=== PATIENT | female | born 1955 | race Caucasian/White ===

== ENCOUNTER 2017-08-19 07:58 | Observation (INO) ==
[2017-08-19] MEDS ORDERED: Ondansetron 4 MG/2 ML VIAL IVP ONE (08:25)
[2017-08-19] MEDS ORDERED: 0.9 % Sodium Chloride 1,000 ML IVC ONE (08:25)
[2017-08-19] MEDS ORDERED: Ketorolac 15 MG/ML VIAL IVP ONE (08:26)
--- NOTE | 2017-08-19 08:43 | Emergency Department Note ---
Disposition Clinical Impression: Spondylolisthesis at L5-S1 level, Thickening of wall of gallbladder Adrenal adenoma Qualifiers: Laterality: unspecified laterality Qualified Code(s): D35.00 - Benign neoplasm of unspecified adrenal gland Abdominal pain Qualifiers: Abdominal location: right upper quadrant Qualified Code(s): R10.11 - Right upper quadrant pain Disposition: Home, Self-Care Condition: Good Referrals: Zhao Menchaca DO [Primary Care Provider] - Forms: ED Satisfaction Letter, Work/School Release Time of Disposition: 11:59 Abdominal Pain HPI - General Chief Complaint: ED Abdominal Pain Stated Complaint: abd pain/epigastric "bulge"/PAINTING Time Seen by Provider: 08/19/17 08:02 Source: patient Mode of arrival: ambulatory Limitations: no limitations Nursing Notes Reviewed: Yes Vital Signs Reviewed: Yes - History of Present Illness HPI Narrative: 62-year-old female with history of hyperlipidemia in with complaint of several days of epigastric and right upper quadrant pain. Patient states she woke up and the pain just got worse. She is not sure if it is worse with meals patient states that the pain is 6 out of 10, crampy achy, she denies any pain in her chest, denies hemoptysis leg swelling. Patient is already much emesis, she denies diarrhea or constipation, denies melena or hematochezia. Pt Subjective Complaint: abdominal pain Onset (ago): hour(s) Location: diffuse, RUQ Pain Severity: moderate Pain Scale: 6 Quality: cramping, aching Migration to: no migration Improves with: nothing Associated symptoms: Reports: nausea, vomiting. Denies: diarrhea, hematemesis, hematochezia - Related Data Home Medications Medication Instructions Recorded Confirmed Cyanocobalamin (Vitamin B-12) 1,000 mcg PO DAILY 01/10/16 08/19/17 [Vitamin B12] Multivitamin [Multivitamins] 1 tab PO DAILY 01/10/16 08/19/17 Ubidecarenone [Co Q10] 60 mg PO DAILY 01/10/16 08/19/17 Nakul Cit/Mag/D3/Zn/Surgical Nurse Practitioner/[place]/Bor 1 tab PO DAILY 10/01/16 08/19/17 [Citracal-Vit D + Magnesium Tab] FLUoxetine HCl [PROzac] 10 mg PO DAILY 10/01/16 08/19/17 Fenofibrate Nanocrystallized 145 mg PO DAILY 10/01/16 08/19/17 [Tricor] [place]-3/Dha/Epa/Fish Oil [Fish Oil 1,000 mg PO DAILY 10/01/16 08/19/17 1,000 mg Softgel] Vitamin E (Dl,Tocopheryl Acet) 1,000 unit PO DAILY 10/01/16 08/19/17 [Vitamin E] Allergies Allergy/AdvReac Type Severity Reaction Status Date / Time No Known Allergies Allergy Verified 08/07/17 18:46 All systems ED: reviewed and negative except as stated. Review of Systems: As Per HPI Constitutional: Denies: fever, chills Eyes: Denies: eye pain ENT ED: Denies: ear pain Cardiovascular: Denies: chest pain, palpitations Respiratory: Denies: cough, dyspnea Gastrointestinal: Reports: as per HPI, abdominal pain, nausea, vomiting. Denies : hematemesis, melena, hematochezia Genitourinary: Denies: urgency Musculoskeletal: Denies: back pain Integumentary: Denies: rash Abdominal Pain PMH - Past Medical History Medical history: Reports: non-contributory, other Female Surgical History: Reports: Tonsillectomy Psychiatric history: Reports: anxiety - Social History Smoking status: Current every day smoker Alcohol use: Reports: rarely Drug use: Reports: none Physical Exam Constitutional: alert and oriented, in NAD, vital signs reviewed and wnl HEENT: NCAT, sclera anicteric Neck: normal inspection, neck is supple, trachea midline Resp: normal chest inspection, CTA bilaterally, no resp distress CV: RRR, no m/g/r GI: normal inspection, Soft moderate tenderness to palpation right upper quadrant, positive Villa's sign, tenderness in epigastrium with no peritoneal signs. Back: normal inspection, negative CVA bilaterally, no tenderness to palpation Neuro: A&O3, no gross motor or sensory deficits bilaterally MSK: normal inspection, bilateral UE and LE with normal ROM Skin: No rashes, skin warm, dry, intact - General Limitations: no limitations General appearance: alert, in no apparent distress Course Course Narrative: 62-year-old female para quadrant and epigastric pain, pancreatitis or basic labs CBC, BMP, troponin EKG, basic lab work including hepatic panel lipase also gallbladder likely CT scan of abdomen., - Reevaluation(s) Reevaluation #1: Ultrasound shows evidence of diffuse gall bladder wall thickening pericholecystic fluid no definitive cholelithiasis, given abdominal pain on exam and guarding, and positive Villa sign, the patient will be admitted to surgical service after spoke with Dr. Reardon the general surgeon, he agreed to admit the patient, she will be kept nothing by mouth for gallbladder removal this afternoon. Findings consistent with osmole early acute cholecystitis, I spoke with the general surgeon he states no indication for antibiotics at this time, he will handle all floor orders. Patient will be kept nothing by mouth and admitted to the general surgeon Time: 12:03 Vital Signs Temperature 98.0 F 08/19/17 07:59 Pulse Rate 90 08/19/17 07:59 Respiratory Rate 18 08/19/17 07:59 Blood Pressure 132/80 08/19/17 07:59 O2 Sat by Pulse Oximetry 100 08/19/17 07:59 Temperature 98.0 F 08/19/17 07:59 Pulse Rate 83 08/19/17 11:02 Respiratory Rate 18 08/19/17 11:02 Blood Pressure 139/79 08/19/17 11:02 O2 Sat by Pulse Oximetry 97 08/19/17 11:02 Oxygen Delivery Oxygen Delivery Room Air Abdominal Pain - Differential Diagnosis Differential Diagnosis: Likely: acute appendicitis, diverticulitis, diverticulosis, gastroenteritis - Medical Records Medical records reviewed: Yes I reviewed the patient's medical records. - Lab Data Lab results reviewed: Yes I reviewed the patient's lab results. Result diagrams: 08/19/17 08:45 08/19/17 08:45 Lab Results 08/19/17 08/19/17 08/19/17 Range/Units 08:45 08:45 08:45 WBC 11.9 H (4.3-11.1) K/mcL RBC 3.90 (3.82-4.97) M/mcL Hgb 12.6 (11.5-15.4) g/dL Hct 37.9 (35.3-44.9) % MCV 97.2 (83.0-100.0) fL MCH 32.3 (28.0-33.3) pg MCHC 33.2 (31.6-35.5) g/dL RDW 12.5 (11.5-14.5) % Plt Count 279 (140-400) K/mcL MPV 8.9 L (9.4-12.4) fL Immature Gran % 0.3 (0-4) % Seg Neutrophils % 69.0 % Lymphocytes % 22.8 % Monocytes % 5.5 % Eosinophils % 2.1 % Basophils % 0.3 % Neutrophils # 8.2 (1.6-8.9) K/mcL Lymphocytes # 2.7 (0.6-4.6) K/mcL Monocytes # 0.7 (0.0-1.3) K/mcL Eosinophils # 0.3 (0.0-0.6) K/mcL Basophils # 0.0 (0.0-0.2) K/mcL Sodium 137 (136-145) mEq/L Potassium 3.7 (3.5-5.1) mEq/L Chloride 107 (98-107) mEq/L Carbon Dioxide 24 (23-29) mEq/L BUN 21 (8-23) mg/dL Creatinine 0.90 (0.60-1.20) mg/dL Est GFR ( Amer) > 60 (> 60) Est GFR (Non-Af Amer) > 60 (> 60) BUN/Creatinine Ratio 23 (6-26) Glucose 124 H (70-105) mg/dL Calculated Osmolality 288 (280-300) Calcium 9.6 (8.6-10.3) mg/dL Total Bilirubin 0.3 (0.3-1.0) mg/dL Direct Bilirubin 0.0 (0.0-0.2) mg/dL Indirect Bilirubin 0.3 (0.0-1.2) mg/dL AST 17 (13-39) Units/L ALT 16 (7-52) Units/L Alkaline Phosphatase 61 (34-104) Units/L Troponin I < 0.03 (< 0.04) ng/mL Serum Total Protein 6.9 (6.4-8.9) g/dL Albumin 4.1 (3.5-5.7) g/dL Globulin 2.8 (2.4-3.5) g/dL Albumin/Globulin Ratio 1.5 (1.1-2.2) Lipase 35 (11-82) Units/L Urine Color (Yellow) Urine Clarity (Clear) Urine pH (5.0-8.0) pH Units Ur Specific Anna (1.010-1.025) Urine Protein (Neg-Trace) mg/dL Urine Glucose (UA) (Normal) mg/dL Urine Ketones (Negative) mg/dL Urine Blood (Negative) Urine Nitrite (Negative) Urine Bilirubin (Negative) Urine Urobilinogen (Normal) mg/dL Ur Leukocyte Esterase (Negative) Ur Culture Indicated? (NO) 08/19/17 Range/Units 09:29 WBC (4.3-11.1) K/mcL RBC (3.82-4.97) M/mcL Hgb (11.5-15.4) g/dL Hct (35.3-44.9) % MCV (83.0-100.0) fL MCH (28.0-33.3) pg MCHC (31.6-35.5) g/dL RDW (11.5-14.5) % Plt Count (140-400) K/mcL MPV (9.4-12.4) fL Immature Gran % (0-4) % Seg Neutrophils % % Lymphocytes % % Monocytes % % Eosinophils % % Basophils % % Neutrophils # (1.6-8.9) K/mcL Lymphocytes # (0.6-4.6) K/mcL Monocytes # (0.0-1.3) K/mcL Eosinophils # (0.0-0.6) K/mcL Basophils # (0.0-0.2) K/mcL Sodium (136-145) mEq/L Potassium (3.5-5.1) mEq/L Chloride (98-107) mEq/L Carbon Dioxide (23-29) mEq/L BUN (8-23) mg/dL Creatinine (0.60-1.20) mg/dL Est GFR ( Amer) (> 60) Est GFR (Non-Af Amer) (> 60) BUN/Creatinine Ratio (6-26) Glucose (70-105) mg/dL Calculated Osmolality (280-300) Calcium (8.6-10.3) mg/dL Total Bilirubin (0.3-1.0) mg/dL Direct Bilirubin (0.0-0.2) mg/dL Indirect Bilirubin (0.0-1.2) mg/dL AST (13-39) Units/L ALT (7-52) Units/L Alkaline Phosphatase (34-104) Units/L Troponin I (< 0.04) ng/mL Serum Total Protein (6.4-8.9) g/dL Albumin (3.5-5.7) g/dL Globulin (2.4-3.5) g/dL Albumin/Globulin Ratio (1.1-2.2) Lipase (11-82) Units/L Urine Color Yellow (Yellow) Urine Clarity Clear (Clear) Urine pH 6.5 (5.0-8.0) pH Units Ur Specific Anna 1.024 (1.010-1.025) Urine Protein Negative (Neg-Trace) mg/dL Urine Glucose (UA) Normal (Normal) mg/dL Urine Ketones Negative (Negative) mg/dL Urine Blood Negative (Negative) Urine Nitrite Negative (Negative) Urine Bilirubin Negative (Negative) Urine Urobilinogen Normal (Normal) mg/dL Ur Leukocyte Esterase Negative (Negative) Ur Culture Indicated? NO (NO) - Radiology Data Radiology results reviewed: Yes I reviewed the patient's radiology results. Gallbladder Ultrasound 08/19/17 08:25 IMPRESSION: Biliary sludge in the gallbladder with diffuse gallbladder wall thickening. Minimal pericholecystic fluid collection. No definite cholelithiasis. Possible solid mass superior and medial to the right kidney. Recommend CT abdomen and pelvis with IV contrast for further assessment. D/ / Haleigh Last MD / Haleigh Last MD Interpreting Provider: Haleigh Last MD Abdomen/Pelvis CT 08/19/17 08:29 IMPRESSION: 1. Mild pericholecystic fluid versus gallbladder wall thickening. No visible stone by CT. Please refer to report for ultrasound obtained concurrently. 2. Stable right adrenal adenoma. 3. Small hiatal hernia. 4. Severe L5-S1 degenerative disc disease with grade 1 anterolisthesis of L5 on S1 due to bilateral L5 pars defects. This can be a cause of chronic low back pain. D/ / 08/19/2017 10:50:13 Rodney Rodriguez MD / Veronica Rushing Interpreting Provider: Rodney Rodriguez MD Chest X-Ray 08/19/17 08:29 IMPRESSION: No evidence for acute cardiopulmonary process. Previously identified pulmonary nodules/ground-glass opacities to the chest on prior CT and PET-CT exams in 2017 are not demonstrated on this portable chest x-ray. Reference can be made to the prior exams for additional information and management recommendations. D/ / 08/19/2017 08:45:53 Vitaliy Tai MD / christofer Interpreting Provider: Vitaliy Tai MD - EKG Data EKG attestation: Yes I reviewed and interpreted this EKG. EKG shows normal: sinus rhythm Rate: normal Rhythm: NSR (86 bpm WA 157 QRS 86 QTc 413 no acute ischemic changes left axis, no ST segment elevations) Q waves: III Interpretation: no acute changes, normal EKG - Core Measures AMI Core Measures Followed: No Attestation Statement - Attestation Attestation: I, Conner Steele DO, examined this patient [id number] and my medical decision-making was reviewed with Dr. Lane Nuno, Resident Physician. I agree with the documented findings, disposition and treatment plan as described except to the extent set forth below. Please see my progress notes for details. 62-year-old female presents to the emergency room with complaint of epigastric bloating and discomfort. Patient denies any chest pain shortness of breath headache vision changes nausea vomiting or diarrhea. Denies any fevers or chills. Her main complaint is epigastric bloating. She started over the last week. Patient denies any trauma or injury. She never had any like this. Patient physical examination resting comfortably in the bed she sitting upright. Lungs are clear heart is regular. She has no reproducible symptoms with palpation to the chest wall. No rash or lesions noted on the anterior abdominal area. There does not appear to be old deformity to the abdominal wall. There is no visible signs of hernia. Patient is mild tenderness to almost point tenderness in the right upper quadrant and midepigastrium. Patient denies any significant alcohol or tobacco abuse history. Abdomen is soft with no tenderness noted S-the above-mentioned issues in the epigastrium and right upper quadrant. Ultrasound was negative for acute visualized cholecystitis. Labs are still pending at this point. CT imaging was ordered to address intra-abdominal pathology. Patient was given fluids and nausea medication. Most likely disposition to determine what sort of in imaging modalities are repeated. Concern is noted her gallbladder, pancreatic, intestinal-related symptoms. Patient does not have any specific history concerning for cardiac disease or issue. EKG did not show any acute signs of pathology. See detailed documentation of physical exam, medical intervention, medical decision-making and disposition physician's note. No critical care provider this patient's treatment course 1100 Patient found to have what appears to be gallbladder wall thickening based on ultrasound of the right upper quadrant. Consultation placed at the surgeon for their recommendations. Labs reviewed in detail as well as imaging modality patient will be admitted to the surgeon for further observation and management. No other recommendations are at this time. No antibiotics started.
[2017-08-19 08:58] LABS: Basophils % 0.3 %; Eosinophils # 0.3 K/mcL (0.0-0.6); Eosinophils % 2.1 %; Hematocrit 37.9 % (35.3-44.9); Hemoglobin 12.6 g/dL (11.5-15.4); Immature Granulocytes % 0.3 % (0-4); Lymphocytes # 2.7 K/mcL (0.6-4.6); Lymphocytes % 22.8 %; Mean Corpuscular HGB Conc 33.2 g/dL (31.6-35.5); Mean Corpuscular Hemoglobin 32.3 pg (28.0-33.3); Mean Corpuscular Volume 97.2 fL (83.0-100.0); Mean Platelet Volume 8.9 fL (9.4-12.4); Monocytes # 0.7 K/mcL (0.0-1.3); Monocytes % 5.5 %; Neutrophils # 8.2 K/mcL (1.6-8.9); Platelet Count 279 K/mcL (140-400); Red Cell Distribution Width 12.5 % (11.5-14.5)
[2017-08-19 09:15] LABS: Alanine Aminotransferase 16 Units/L (7-52); Albumin 4.1 g/dL (3.5-5.7); Albumin/Globulin Ratio 1.5 (1.1-2.2); Alkaline Phosphatase 61 Units/L (34-104); Aspartate Amino Transferase 17 Units/L (13-39); BUN/Creatinine Ratio 23 (6-26); Bilirubin,Indirect 0.3 mg/dL (0.0-1.2); Bilirubin,Total 0.3 mg/dL (0.3-1.0); Blood Urea Nitrogen 21 mg/dL (8-23); Calcium 9.6 mg/dL (8.6-10.3); Carbon Dioxide 24 mEq/L (23-29); Chloride 107 mEq/L (98-107); Globulin 2.8 g/dL (2.4-3.5); Glucose 124 mg/dL (70-105); Lipase 35 Units/L (11-82); Osmolality,Calculated 288 (280-300); Potassium 3.7 mEq/L (3.5-5.1); Sodium 137 mEq/L (136-145); Total Protein 6.9 g/dL (6.4-8.9); eGFR For African Americans > 60 (> 60); eGFR For Non-African Americans > 60 (> 60)
[2017-08-19 09:43] LABS: Bilirubin,Urine Negative (Negative); Blood,Urine Negative (Negative); Clarity,Urine Clear (Clear); Color,Urine Yellow (Yellow); Glucose,Urine (UA) Normal (Normal); Ketones,Urine Negative (Negative); Leukocyte Esterase,Urine Negative (Negative); Nitrite,Urine Negative (Negative); PH,Urine 6.5 pH Units (5.0-8.0); Protein,Urine Negative (Neg-Trace); Specific Gravity,Urine 1.024 (1.010-1.025); Urobilinogen,Urine Normal (Normal)
--- NOTE | 2017-08-19 12:05 | General Surg History&Physical ---
Date of Encounter: 08/19/17 Time of Encounter: 11:40 Assessment and Plan (1) Cholecystitis Current Visit: Yes Status: Acute The assessment and plan as outlined above was discussed with the patient and/or family members who expressed understanding and agreement. All questions were answered. The patient appears to have acute cholecystitis. She will be admitted to the hospital for IV hydration and antibiotic therapy. We will proceed with laparoscopic cholecystectomy and intraoperative cholangiogram later today. History of Present Illness Chief complaint: Right upper quadrant abdominal pain HPI: Ms. Cortes is a 62 year old female who has had pain for several days. Last evening the pain became continuous and right upper quadrant. She experienced nausea but no vomiting. The pain is continuous in nature. She denies shakes chills or fever. She denies episodes of jaundice. She has previously had episodes of right upper quadrant discomfort but is had no further workup for this. She sought evaluation in the emergency department. She has a thickened gallbladder wall and gallbladder sludge as well as pericholecystic fluid. Findings are consistent with acute cholecystitis. She has not previously had any upper abdominal surgery. She now presents for evaluation and management of acute cholecystitis. Past Med Surg Social Fam HX - Past Medical History Medical history: non-contributory, other Psychiatric history: anxiety - Past Surgical History Surgical History: breast surgery - Social History Smoking Status: Current every day smoker Smokeless Tobacco Status: No Alcohol use: rarely Drug use: none Medications and Allergies Cyanocobalamin (Vitamin B-12) [Vitamin B12] 1,000 mcg PO DAILY 01/10/16 [History ] Multivitamin [Multivitamins] 1 tab PO DAILY 01/10/16 [History] Ubidecarenone [Co Q10] 60 mg PO DAILY 01/10/16 [History] Nakul Cit/Mag/D3/Zn/Cotton Washer/[place]/Bor [Citracal-Vit D + Magnesium Tab] 1 tab PO DAILY 10/01/16 [History] FLUoxetine HCl [PROzac] 10 mg PO DAILY 10/01/16 [History] Fenofibrate Nanocrystallized [Tricor] 145 mg PO DAILY 10/01/16 [History] [place]-3/Dha/Epa/Fish Oil [Fish Oil 1,000 mg Softgel] 1,000 mg PO DAILY 10/01/16 [History] Vitamin E (Dl,Tocopheryl Acet) [Vitamin E] 1,000 unit PO DAILY 10/01/16 [History ] 3 Allergy/AdvReac Type Severity Reaction Status Date / Time No Known Allergies Allergy Verified 08/07/17 18:46 Review of Systems All systems PM: A 10-system review of systems was performed and is negative for pertinent findings except as documented above in the HPI. General Surgery Exam Initial Vital Signs Temp Pulse Resp BP Pulse Ox 98.0 F 90 18 132/80 100 08/19/17 07:59 08/19/17 07:59 08/19/17 07:59 08/19/17 07:59 08/19/17 07:59 - General physical appearance well developed, well nourished, no distress - ENT normal pinna, normal nares, normal mucosa, no hearing loss, no congestion - Neck no masses, no bruits, trachea midline, no lymphadectomy, no venous distension - Respiratory normal expansion, normal respiratory effort wheezing: bilateral - Cardiovascular Cardiovascular exam: Present: RRR, 15, 16 - Abdomen Abdomen general surgery: Present: tender, guarding Abdominal Tenderness: Present: RUQ Hernia: Present: none - Neurologic Present: CN 2-12 grossly intact, normal coordination, normal sensation - Psychiatric Psychiatric general surgery: Present: appropriate, oriented to person, oriented to place, oriented to time, speech is normal, memory intact Results - Labs 08/19/17 08:45 08/19/17 08:45 Abnormal lab results WBC 11.9 K/mcL (4.3-11.1) H 08/19/17 08:45 MPV 8.9 fL (9.4-12.4) L 08/19/17 08:45 Glucose 124 mg/dL (70-105) H 08/19/17 08:45 Diabetes panel 08/19/17 Range/Units 08:45 Sodium 137 (136-145) mEq/L Potassium 3.7 (3.5-5.1) mEq/L Chloride 107 (98-107) mEq/L Carbon Dioxide 24 (23-29) mEq/L BUN 21 (8-23) mg/dL Creatinine 0.90 (0.60-1.20) mg/dL Glucose 124 H (70-105) mg/dL Calcium 9.6 (8.6-10.3) mg/dL AST 17 (13-39) Units/L ALT 16 (7-52) Units/L Alkaline Phosphatase 61 (34-104) Units/L Albumin 4.1 (3.5-5.7) g/dL Calcium panel 08/19/17 Range/Units 08:45 Calcium 9.6 (8.6-10.3) mg/dL Albumin 4.1 (3.5-5.7) g/dL Pituitary panel 08/19/17 Range/Units 08:45 Sodium 137 (136-145) mEq/L Potassium 3.7 (3.5-5.1) mEq/L Chloride 107 (98-107) mEq/L Carbon Dioxide 24 (23-29) mEq/L BUN 21 (8-23) mg/dL Creatinine 0.90 (0.60-1.20) mg/dL Glucose 124 H (70-105) mg/dL Calcium 9.6 (8.6-10.3) mg/dL Adrenal panel 08/19/17 Range/Units 08:45 Sodium 137 (136-145) mEq/L Potassium 3.7 (3.5-5.1) mEq/L Chloride 107 (98-107) mEq/L Carbon Dioxide 24 (23-29) mEq/L BUN 21 (8-23) mg/dL Creatinine 0.90 (0.60-1.20) mg/dL Glucose 124 H (70-105) mg/dL Calcium 9.6 (8.6-10.3) mg/dL Total Bilirubin 0.3 (0.3-1.0) mg/dL AST 17 (13-39) Units/L ALT 16 (7-52) Units/L Alkaline Phosphatase 61 (34-104) Units/L Albumin 4.1 (3.5-5.7) g/dL All other labs normal. - Imaging US - abdomen: image reviewed (I personally reviewed the images. Findings are consistent with acute cholecystitis with pericholecystic fluid and thickened gallbladder wall)
[2017-08-19] MEDS ORDERED: CefOXitin 1,000 MG VIAL ONE (13:53)
[2017-08-19] MEDS ORDERED: Isovue-300 50 ML VIAL IVP ONE (13:55)
[2017-08-19] MEDS ORDERED: Albuterol 2.5 MG/3 ML NEBULIZER ONE (14:07)
[2017-08-19] MEDS ORDERED: Albuterol 2.5 MG/3 ML NEBULIZER IH ONE (14:10)
--- NOTE | 2017-08-19 14:11 | Anesthesia Evaluation PreOp ---
Date of Encounter: 08/19/17 Time of Encounter: 13:59 - Past History Planned Operation: lap alexsander, Cardiac History: Denies any Significant Hx (METS >4 without comp.) Pulmonary History: Smoker, Other (bronchitis 6 wks ago, steriod given, no hospitalizations.) HISTORIOGRAPHER History: Denies Any Significant HX Other Medical History: Other (depression) Anesthesia History: No Prior Anesthetic Complications, Past Anesthesia Alcohol Use: rarely Drug use: none Medications and Allergies Cyanocobalamin (Vitamin B-12) [Vitamin B12] 1,000 mcg PO DAILY 01/10/16 [History ] Multivitamin [Multivitamins] 1 tab PO DAILY 01/10/16 [History] Ubidecarenone [Co Q10] 60 mg PO DAILY 01/10/16 [History] Nakul Cit/Mag/D3/Zn/Coke Oven Patcher/[place]/Bor [Citracal-Vit D + Magnesium Tab] 1 tab PO DAILY 10/01/16 [History] FLUoxetine HCl [PROzac] 10 mg PO DAILY 10/01/16 [History] Fenofibrate Nanocrystallized [Tricor] 145 mg PO DAILY 10/01/16 [History] [place]-3/Dha/Epa/Fish Oil [Fish Oil 1,000 mg Softgel] 1,000 mg PO DAILY 10/01/16 [History] Vitamin E (Dl,Tocopheryl Acet) [Vitamin E] 1,000 unit PO DAILY 10/01/16 [History ] 3 Allergy/AdvReac Type Severity Reaction Status Date / Time No Known Allergies Allergy Verified 08/07/17 18:46 Anesthesia Results - Labs 08/19/17 08:45 08/19/17 08:45 Anesthesia Exam - HEENT Pupil (Motor): Pupils equal Mallampati: II Teeth: Missing (lower posts) Oral Opening: Greater than 3 - HISTORIOGRAPHER LOC: Oriented HISTORIOGRAPHER Motor: Normal RUE, Normal LUE, Normal RLE, Normal LLE, Normal Face HISTORIOGRAPHER Sensory: Normal: RUE, LUE, RLE, LLE, Face - Cardiac Rhythm: Regular Murmur: None - Pulmonary Breath Sounds: bilateral Rhonchi (mild) Respiratory Effort: Symmetrical Anesthesia Assess/Plan ASA Score: 2 Modified Osmel Scale for Level of Consciousness: Cooperative, oriented, and tranquil Anesthetic Plan: General Monitoring Plan: Standard Monitors Recovery Plan: PACU
[2017-08-19] MEDS ORDERED: MORPHINE SUL Oral CONC 10 MG/0.5 ML ORAL.SYG ONE (14:16)
[2017-08-19] MEDS ORDERED: *HR* OxyCODONE/APAP 5/325 TABLET PO PRN (14:43)
[2017-08-19] MEDS ORDERED: Ondansetron 4 MG/2 ML VIAL IVP PRN ×2 (14:43→16:24)
[2017-08-19] MEDS ORDERED: *HR* Midazolam HCl 2 MG/2 ML VIAL ONE (14:46)
[2017-08-19] MEDS ORDERED: *HR* Propofol 200 MG/20 ML VIAL IVP ONE (14:46)
[2017-08-19] MEDS ORDERED: CefOXitin 2,000 MG VIAL ONE (14:46)
[2017-08-19] MEDS ORDERED: Neostigmine Methylsulfate 3 MG/3 ML SYRINGE ONE (14:46)
[2017-08-19] MEDS ORDERED: Dexamethasone 4 MG/ML VIAL ONE (14:46)
[2017-08-19] MEDS ORDERED: *HR* Succinylcholine 200 MG/10 ML VIAL IVP ONE (14:46)
[2017-08-19] MEDS ORDERED: *HR* FentaNYL (PF) 100 MCG/2 ML VIAL ONE (14:46)
[2017-08-19] MEDS ORDERED: Ketorolac 30 MG/ML VIAL ONE (14:46)
[2017-08-19] MEDS ORDERED: Lidocaine -MPF 2% 2 ML VIAL ONE (14:46)
[2017-08-19] MEDS ORDERED: *HR* Rocuronium Bromide 50 MG/5 ML VIAL ONE (14:46)
[2017-08-19] MEDS ORDERED: Ondansetron 4 MG/2 ML VIAL ONE (14:46)
--- NOTE | 2017-08-19 14:53 | Anesthesia Procedures ---
Date of Encounter: 08/19/17 Time of Encounter: 14:25 Procedures: Anesthesia - Nerve Block Procedure Date: 08/19/17 Time: 14:25 Allergies/Adv Reactions: nkda Surgical Procedure: lap alexsander Checklist: Correct Patient Identifier, Correct procedure, History checked Blood Thinner: No Monitor Applied: EKG, BP, Pulse Oximetry Supplemental Oxygen via Nasal Cannula (L/min): 5 (under GA) Indication: Post Op Analgesia Pre-op Neuro Deficits: No Block Type: Other (TAP, and subcostal TAP) Catheter placed: No Sterile Technique: Yes Ultrasound used: Yes Anatomy identified: Yes Visual spread of Local: Yes Neuro Stimulation: No Blood on Needle Aspiration: No Smooth Injection of Local: Yes Prep: Chlorhexadine Needle: 21 x 100 mm Stimuplex Local: Other (0.25% bup plain) Volume (cc): 65 Number of Attempts: 1 Complications: None/effective block Vitals: vss see anesthesia note.
--- NOTE | 2017-08-19 15:15 | Operative Note ---
Date of procedure: 08/19/17 Pre-op diagnosis: Acute cholecystitis Post-op diagnosis: same Procedure: Laparoscopic cholecystectomy, cholangiogram Anesthesia: CARLOS Surgeon: Nolan Conde Was there an assistant speech language pathologist present: No Estimated blood loss (cc): 40 Specimen: Gallbladder and contents Condition: stable Disposition: PACU Procedure in Detail: Laparoscopic cholecystectomy and intraoperative cholangiogram Operative procedure after informed consent and appropriate patient identification timeout the patient was taken to the major operating suite and placed supine position given adequate general endotracheal anesthesia the abdomen is prepped and draped in sterile fashion utilizing ChloraPrep standard draping techniques timeout was taken patient is identified. I made a vertical midline incision below the umbilicus dissected down to level of fascia there are 2 traction stitches placed in the abdominal cavity was entered visually. A Albarran trocar was placed in the abdomen and the abdomen was insufflated to 15 mmHg pressure CO2 the gallbladder was visualized. A placement 11 port in the subxiphoid area and 2 5 mm ports in the subcostal area. The gallbladder was completely obstructed. The gallbladder was decompressed with a decompression needle and suction. The gallbladder was also encased in acute inflammatory reactions. These were divided with electrocautery The gallbladder was grasped and elevated. A variety of blunt and sharp dissection techniques were used to isolate the cystic duct and cystic artery. The cystic artery was controlled with 2 surgical clips proximally and one distally and it was divided I placed a surgical clip on the neck the gallbladder and obtained an intraoperative cholangiogram using 10 mL of Isovue. Intraoperative cholangiogram was normal. The cholangiocatheter was removed and the cystic duct was controlled with 2 surgical clips proximally and was divided the gallbladder was removed from the gallbladder fossae using electrocautery. The gallbladder was removed through the #11 port site. I replaced the #11 port and irrigated with copious amounts of antibiotic containing solution. There is no evidence of bleeding or bile leak. All trochars were removed. Fascia was closed with 0 Vicryl skin with 2-0 and 4-0 Vicryl She tolerated the procedure well and was transferred to recovery in stable condition
[2017-08-19] MEDS: MORPHINE SUL Oral CONC 10 MG/0.5 ML ORAL.SYG SL PRN ×2 (15:40→15:50)
--- NOTE | 2017-08-19 15:54 | Anesthesia Evaluation Post Op ---
Date of Encounter: 08/19/17 Time of Encounter: 15:52 - Vital Signs Vital Signs: Vital Signs/O2 Sat, Most Current Temp Pulse Resp BP Pulse Ox 98.2 F 78 20 146/72 96 08/19/17 15:45 08/19/17 15:45 08/19/17 15:45 08/19/17 15:45 08/19/17 15:45 - Lungs Lungs: Clear Ascult./Percussion - Airway Airway: Non-obstructed - Cardiovascular Regular Rate - Mental Status Mental Status: Alert & Oriented, Answers Appropriately - Pain Pain Scale: 7 (pt complaining of back pain that is "getting better" after pain med given) Pain Scale used: Numeric (1 - 10) - Nausea Vomiting Nausea Vomiting: Not Present - Hydration Hydration: Ice chips, Has not voided - Discharge PostOp Status: Transfer Patient to floor
[2017-08-19] MEDS ORDERED: *HR* OxyCODONE/APAP 10/325 TABLET PO PRN (16:24)
[2017-08-19] MEDS ORDERED: cefOXitin 2,000 MG in Water for inj. (sterile) 10 ML IVP SCH (16:24)
[2017-08-19] MEDS ORDERED: OXYCODONE Oral CONC 10 MG/0.5 ML ORAL.SYG SL PRN (16:24)
[2017-08-19] MEDS ORDERED: *HR* HYDROcodone/Acet 5/325 mg TABLET PO PRN (16:24)
[2017-08-19] MEDS ORDERED: cefOXitin 2,000 MG in Water for inj. (sterile) 20 ML 10 ML IVP SCH (16:24)
[2017-08-19] MEDS ORDERED: 0.9 % Sodium Chloride 1,000 ML IVC SCH (16:24)
--- NOTE | 2017-08-19 18:09 | Electrocardiograph Report ---
[place] [id number] Test Date: 2017-08-19 Pat Name: Claudia Cortes Department: 104 Room: 3A44 Gender: F Account Support Analyst: [facility] : 1955 Requested By: Lane Nuno Order Number: [id number] Reading MD: Ryan Velazquez Measurements Intervals Lawrence Rate: 86 P: 9 SC: 157 QRS: 23 QRSD: 86 T: 39 QT: 369 QTc: 413 Interpretive Statements SINUS RHYTHM Electronically Signed On 08-19-2017 18:07:38 EST by Ryan Velazquez
[2017-08-19] MEDS: 0.9 % Sodium Chloride 1,000 ML IVC SCH (18:39)
[2017-08-19] MEDS ORDERED: Nicotine 21 MG PATCH.TD24 TD SCH (18:45)
[2017-08-19] MEDS: cefOXitin 2,000 MG in Water for inj. (sterile) 20 ML 10 ML IVP SCH (21:24)
[2017-08-20] MEDS: cefOXitin 2,000 MG in Water for inj. (sterile) 20 ML 10 ML IVP SCH (06:35)
[2017-08-20] MEDS: 0.9 % Sodium Chloride 1,000 ML IVC SCH (06:41)
--- NOTE | 2017-08-20 07:26 | General Surgery Progress Note ---
Date of Encounter: 08/20/17 Time of Encounter: 07:17 - Assessment and Plan (1) Cholecystitis Current Visit: Yes Status: Acute 62 y F presenting with RUQ abdominal pain 2/2 to acute cholecystitis Date of procedure: 08/19/17 Pre-op diagnosis: Acute cholecystitis Post-op diagnosis: same Procedure: Laparoscopic cholecystectomy, cholangiogram Anesthesia: CARLOS Surgeon: Nolan Conde CBC, BMP for this AM pending Supportive care and pain control PPI therapy twice daily IV Antibiotics Advance Diet, as tolerated IS every 1 hour while awake AM labs- CBC, BMP, Mg, Phos (2) Depression Current Visit: Yes Status: Chronic Resume pt's home med, given tolerance of oral diet Qualifiers: Depression Type: unspecified Qualified Code(s): F32.9 - Major depressive disorder, single episode, unspecified (3) DVT prophylaxis Current Visit: Yes Status: Acute Intermittent pneumatic compression devices Ambulate TID at minimum, with assistance Subjective Narrative: No acute events overnight. Objective Vital Signs - Last 8 Hours Temp Pulse Resp BP Pulse Ox 08/20/17 03:56 98.4 F 78 15 123/79 97 08/19/17 23:37 97.6 F 91 16 112/71 95 Intake and Output 08/19/17 08/19/17 08/20/17 15:59 23:59 07:59 Intake Total 490 / 490 1010 / 1010 Output Total 40 / 40 0 / 0 0 / 0 Balance -40 / 960 490 / 490 1010 / 1010 Intake: IV Fluids 1010 / 1010 0.9 % Sodium Chloride 1,000 ML 1000 / 1000 @ 75 mls/hr IVC .[id number] [facility] Rx #:[id number] Mefoxin 2,000 MG In Water for inj. (sterile) 10 ML @ 150 mls/ hr IVP Q8H RODY Rx#:[id number] Oral 480 / 480 0 / 0 Output: Urine 0 / 0 0 / 0 0 / 0 Estimated Blood Loss 40 / 40 Other: # Voids 1 Weight 70.33 kg Patient Weight 08/20/17 23:59 Weight 70.33 kg - Labs 08/19/17 08:45 08/19/17 08:45 - VTE Documentation of Mechanical Device: Intermittent pneumatic compression device Consult Discharge Plan - Plan Referrals: Zhao Menchaca, [Primary Care Provider] -
[2017-08-20 08:04] LABS: Basophils % 0.1 %; Eosinophils % 0.2 %; Hematocrit 35.9 % (35.3-44.9); Hemoglobin 11.7 g/dL (11.5-15.4); Immature Granulocytes % 0.3 % (0-4); Lymphocytes # 2.7 K/mcL (0.6-4.6); Mean Corpuscular HGB Conc 32.6 g/dL (31.6-35.5); Mean Corpuscular Hemoglobin 31.9 pg (28.0-33.3); Mean Corpuscular Volume 97.8 fL (83.0-100.0); Mean Platelet Volume 9.1 fL (9.4-12.4); Monocytes # 0.7 K/mcL (0.0-1.3); Monocytes % 6.4 %; Neutrophils # 7.6 K/mcL (1.6-8.9); Platelet Count 271 K/mcL (140-400); Red Blood Count 3.67 M/mcL (3.82-4.97); Red Cell Distribution Width 12.4 % (11.5-14.5)
[2017-08-20 08:15] LABS: BUN/Creatinine Ratio 14 (6-26); Blood Urea Nitrogen 12 mg/dL (8-23); Calcium 8.8 mg/dL (8.6-10.3); Carbon Dioxide 26 mEq/L (23-29); Chloride 110 mEq/L (98-107); Glucose 114 mg/dL (70-105); Osmolality,Calculated 291 (280-300); Potassium 3.9 mEq/L (3.5-5.1); Sodium 140 mEq/L (136-145); eGFR For African Americans > 60 (> 60); eGFR For Non-African Americans > 60 (> 60)
[2017-08-20 08:35] VITALS: BP 127/73
[2017-08-20] MEDS ORDERED: FLUoxetine HCl 10 MG CAPSULE PO SCH (09:00)
--- NOTE | 2017-08-20 10:38 | Discharge Summary ---
Date of Encounter: 08/20/17 Time of Encounter: 10:36 - Discharge Diagnosis (1) Cholecystitis Priority: Primary Status: Acute (2) Depression Priority: Secondary Status: Chronic Qualifiers: Depression Type: unspecified Qualified Code(s): F32.9 - Major depressive disorder, single episode, unspecified (3) DVT prophylaxis Priority: Secondary Status: Acute - Discharge Medications Home Medications: Cyanocobalamin (Vitamin B-12) [Vitamin B12] 1,000 mcg PO DAILY 01/10/16 [History ] Multivitamin [Multivitamins] 1 tab PO DAILY 01/10/16 [History] Ubidecarenone [Co Q10] 60 mg PO DAILY 01/10/16 [History] Nakul Cit/Mag/D3/Zn/[employer]/[place]/Bor [Citracal-Vit D + Magnesium Tab] 1 tab PO DAILY 10/01/16 [History] FLUoxetine HCl [PROzac] 10 mg PO DAILY 10/01/16 [History] Fenofibrate Nanocrystallized [Tricor] 145 mg PO DAILY 10/01/16 [History] [place]-3/Dha/Epa/Fish Oil [Fish Oil 1,000 mg Softgel] 1,000 mg PO DAILY 10/01/16 [History] Vitamin E (Dl,Tocopheryl Acet) [Vitamin E] 1,000 unit PO DAILY 10/01/16 [History ] Docusate [Colace] 100 mg PO BID #30 capsule 08/20/17 [Rx] Ibuprofen 800 mg PO Q8HR PRN #42 tablet 08/20/17 [Rx] OxyCODONE/APAP 5/325 [Percocet 5/325 MG] 1 each PO Q6HR PRN 7 Days #20 tablet [Rx] Allergies/Adverse Reactions: 3 Allergy/AdvReac Type Severity Reaction Status Date / Time No Known Allergies Allergy Verified 08/07/17 18:46 General Surgery Exam Physical exam performed by Nolan Conde MD and dictated as stated below: Initial Vital Signs Temp Pulse Resp BP Pulse Ox 98.0 F 90 18 132/80 100 08/19/17 07:59 08/19/17 07:59 08/19/17 07:59 08/19/17 07:59 08/19/17 07:59 - General physical appearance no distress - Eyes normal ocular movement - Respiratory normal expansion, clear to auscultation - Abdomen Abdomen general surgery: Present: bowel sounds present. Absent: distended - Incision Incision: Present: intact Date of admission: 08/19/17 13:28 Primary care physician: Zhao Menchaca Discharging clinician: Radha Lilly Anticipated date of discharge: 08/20/17 - Patient Status Disposition: Home, Self-Care Condition: Good Overall status at discharge: patient is progressing back to baseline - Discharge Instructions Instructions: Cholecystitis (DC) Follow Up With: Zhao Menchaca DO [Primary Care Provider] - Deysi Patel BANQUET LEAD [Advanced Practice Nurse] - 09/02/17 9:40 am (Hospital F/U [facility] ([facility] [place])) Additional Instructions: 1. No pushing, pulling, or lifting greater than 15 lbs for 2-4 weeks. 2. You may shower beginning today, but no tub baths, soaking, or swimming for 2 weeks. 3. You may resume driving when you are off narcotics and are safe to react in a car. 4. Take ibuprofen every 8 hours for discomfort. If this does not relieve discomfort, you may take the as needed Percocet. Take narcotics as directed. Do not take more narcotics then directed and do not share your narcotics with any other person. Do not drink alcohol while on narcotics. Please exercise caution with new onset of medication while use of fluoxetine( Prozac). Contact your primary care provider prior to long-term use of any new medications. 5. Take stool softeners (Colace) or a water based laxative (Miralax) while taking narcotics. You may hold for loose stools. 6. Report any fevers greater than 100.5F, increase abdominal discomfort, drainage that looks like pus, increased redness or pain at the surgical site, or any vomiting. 7. Report any pain in the calves, shortness of breath, or rapid heartbeat, or acute onset of pain. 8. Follow-up in the office as directed. 9. If you were prescribed antibiotics, do not stop them without talking to your provider. 10.Please exercise caution with new onset of medication while use of fluoxetine( Prozac), and return to the ED if you acute onset of pain. - Diet and Activity Activity: increase activity as tolerated Diet: other (conservative advancement of diet) - Hospital Course Hospital course: Ms. Cortes is a 62 year old female presented with abdominal pain and imaging suggestive of acute cholecystitis. Ultrasound demonstrated Biliary sludge in the gallbladder with diffuse gallbladder wall thickening and a pericholecystic fluid collection. She was admitted to the hospital for IV hydration and antibiotic therapy and evaluated as a surgical candidate. She tolerated laparoscopic cholecystectomy and intraoperative cholangiogram; she was followed for post-operative care and upon meeting discharge criteria she was discharged with instruction to follow-up as an outpatient. - Time Spent with Patient Total time spent providing and/or coordinating discharge services: Procedures and tests throughout hospitalization: ITS Impressions Cholangiogram,Operative 08/19/17 00:00 IMPRESSION: Unremarkable intraoperative cholangiogram. Reference procedure report for additional information. D/ / 08/19/2017 15:19:41 Vitaliy Tai MD / romulo Interpreting Provider: Vitaliy Tai MD Gallbladder Ultrasound 08/19/17 08:25 IMPRESSION: Biliary sludge in the gallbladder with diffuse gallbladder wall thickening. Minimal pericholecystic fluid collection. No definite cholelithiasis. Possible solid mass superior and medial to the right kidney. Recommend CT abdomen and pelvis with IV contrast for further assessment. D/ / Haleigh Last MD / Haleigh Last MD Interpreting Provider: Haleigh Last MD Abdomen/Pelvis CT 08/19/17 08:29 IMPRESSION: 1. Mild pericholecystic fluid versus gallbladder wall thickening. No visible stone by CT. Please refer to report for ultrasound obtained concurrently. 2. Stable right adrenal adenoma. 3. Small hiatal hernia. 4. Severe L5-S1 degenerative disc disease with grade 1 anterolisthesis of L5 on S1 due to bilateral L5 pars defects. This can be a cause of chronic low back pain. D/ / 08/19/2017 10:50:13 Rodney Rodriguez MD / Veronica Rushing Interpreting Provider: Rodney Rodriguez MD Chest X-Ray 08/19/17 08:29 IMPRESSION: No evidence for acute cardiopulmonary process. Previously identified pulmonary nodules/ground-glass opacities to the chest on prior CT and PET-CT exams in 2017 are not demonstrated on this portable chest x-ray. Reference can be made to the prior exams for additional information and management recommendations. D/ / 08/19/2017 08:45:53 Vitaliy Tai MD / christofer Interpreting Provider: Vitaliy Tai MD Labs on day of discharge: Labs from last 24 hours 08/20/17 08/20/17 07:48 07:48 WBC 11.0 RBC 3.67 L Hgb 11.7 Hct 35.9 MCV 97.8 MCH 31.9 MCHC 32.6 RDW 12.4 Plt Count 271 MPV 9.1 L Immature Gran % 0.3 Seg Neutrophils % 69.0 Lymphocytes % 24.0 Monocytes % 6.4 Eosinophils % 0.2 Basophils % 0.1 Neutrophils # 7.6 Lymphocytes # 2.7 Monocytes # 0.7 Eosinophils # 0.0 Basophils # 0.0 Sodium 140 Potassium 3.9 Chloride 110 H Carbon Dioxide 26 BUN 12 Creatinine 0.83 Est GFR ( Amer) > 60 Est GFR (Non-Af Amer) > 60 BUN/Creatinine Ratio 14 Glucose 114 H Calculated Osmolality 291 Calcium 8.8
== END 2017-08-20 12:53 | disposition home or self-care (01) ==
LOC: 3ANU 07:58 → EMEROO 07:58 → 3ANU 13:57
PROVIDERS: ADMIT Surgery; ATTEND Surgery